=== PATIENT | female | born 1980 | race Caucasian/White ===

== ENCOUNTER 2017-01-20 13:03 | Emergency (ER) | payer OTHER ==
[~2017-01-20 13:03] MED LIST: ABILIFY5 MG; ABILIFY5 MG PO; AMBIEN PO; BACTRIM DS TABL1 TA1 PO; BIRTH CONTROL PO; DIAZEPAM PO; DICLOFENAC PO; DILANTIN PO; ELIMITE60 GM TOP; FAMOTIDINE PO; FLEXERIL PO; IBUPROFEN PO; KEPPRA500 MG; KLONOPIN PO; KLONOPIN1 MG PO; METHADONE PO; PHENERGAN PO; PHENERGAN25 M1 DOB; PHENERGAN25 MG PO; PROZAC PO; SEROQUEL PO; SKELAXIN PO; TRAMADOL HCL50 M1 PO; VICODIN; XANAX1 MG PO; ZOFRAN ODT4 MG DOB; ZYRTEC10 M2 PO
[2017-01-20] MEDS ORDERED: NEURONTIN800 MG PO (13:07)
[2017-01-20] MEDS ORDERED: KEPPRA500 M2 PO (13:07)
[2017-01-20] MEDS ORDERED: FOLIC ACID (13:08)
[2017-01-20] MEDS ORDERED: PRENATAL MULTI1 EAC3 (13:08)
== END 2017-01-20 14:40 | disposition home or self-care (01) ==
LOC: SED 13:03
DX: O99.513 Diseases of the respiratory system complicating pregnancy, third trimester (principal); J01.00 Acute maxillary sinusitis, unspecified; H66.91 Otitis media, unspecified, right ear; O99.343 Other mental disorders complicating pregnancy, third trimester; F41.9 Anxiety disorder, unspecified; F32.9 Major depressive disorder, single episode, unspecified; O99.333 Smoking (tobacco) complicating pregnancy, third trimester; F17.200 Nicotine dependence, unspecified, uncomplicated; Z88.0 Allergy status to penicillin; Z88.2 Allergy status to sulfonamides; Z88.5 Allergy status to narcotic agent; Z79.899 Other long term (current) drug therapy; Z3A.37 37 weeks gestation of pregnancy
CPT/HCPCS: 87651; 99283